=== PATIENT | male | born 1965 | race African-American/Black ===

== ENCOUNTER 2016-08-01 11:48 | Emergency (ER) | payer OTHER ==
[~2016-08-01] VITALS: Ht 167.6 cm; Wt 77.1 kg
[~2016-08-01 11:48] MED LIST: FLONASE ALLERG9.9 ML NS; IBUPROFEN600 MG ORAL; NORCO 5-325 TA1 EACH ORAL; RANITIDINE HCL150 MG ORAL; ROBITUSSIN COU118 M4 PO; no home meds
[2016-08-01 11:59] VITALS: BP 125/77
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
[2016-08-01] MEDS ORDERED: ACETAMINOPHEN-1 EAC1 ORAL (12:41)
[2016-08-01] MEDS ORDERED: ROBAXIN-750750 MG PO (12:41)
[2016-08-01] MEDS ORDERED: IBUPROFEN600 MG ORAL (12:41)
[2016-08-01 13:26] VITALS: BP 130/80
--- NOTE | 2016-08-04 08:48 | Diagnostic Imaging Report ---
Indications: , Back pain. Technique: 3 views of the thoracic spine Findings: Comparison: None The T12 vertebral body demonstrates mild height loss with anterior wedging with superior endplate. This results in mild kyphotic angulation. No underlying lytic destructive process or intrapedicle distance widening. Remaining thoracic vertebrae are normal in height and configuration. Vertebral alignment is intact. . Slight S-shaped scoliosis is present. No other chronic changes are demonstrated. IMPRESSION: Mild anterior wedging of T12 vertebral body may be developmental or represent mild compression fracture, acuity indeterminate. If clinically indicated, consider MRI for further evaluation. Mild scoliosis.
== END 2016-08-01 13:28 | disposition home or self-care (01) ==
LOC: EMR 12:15
DX: S39.92XA Unspecified injury of lower back, initial encounter (principal); S30.0XXA Contusion of lower back and pelvis, initial encounter; W50.0XXA Accidental hit or strike by another person, initial encounter; Y93.9 Activity, unspecified; Y92.9 Unspecified place or not applicable; Z88.0 Allergy status to penicillin; Z88.8 Allergy status to other drugs, medicaments and biological substances; K21.9 Gastro-esophageal reflux disease without esophagitis
CPT/HCPCS: 72070; 99282

== ENCOUNTER 2016-08-19 22:40 | Emergency (ER) | payer OTHER ==
[~2016-08-19 22:40] MED LIST changes: +ACETAMINOPHEN-1 EAC1 ORAL; +ROBAXIN-750750 MG PO
--- NOTE | 2016-08-19 22:54 | Emergency Room Report ---
History of Present Illness General Chief Complaint: To Be Triaged Present Illness HPI Patient presents with chief complaint of back pain. Patient decided not to check in the left because he did want to be billed. I did not get to see this patient. Allergies: Coded Allergies: ERYTHROMYCIN BASE (Verified Allergy, Severe, Itching, 12/28/12) feels sick PENICILLINS (Verified Allergy, Severe, Itching, 12/28/12) Nursing Documentation-PMH Hx Gastrointestinal Problems: Yes - GERD,Hx of Hemorrhoids Medical Decision Making Disposition: LEFT W/OUT BEING SEEN KEYONA BARRIOS M.D. August 19, 2016 22:54
== END 2016-08-19 22:46 | disposition left against medical advice (07) ==
LOC: EMR 22:46
DX: Z53.21 Procedure and treatment not carried out due to patient leaving prior to being seen by health care provider (principal); Z88.1 Allergy status to other antibiotic agents; Z88.0 Allergy status to penicillin; K21.9 Gastro-esophageal reflux disease without esophagitis

== ENCOUNTER 2016-08-25 13:57 | Emergency (ER) | payer OTHER ==
[2016-08-25] MEDS ORDERED: ROBAXIN-750750 MG PO (17:58)
[2016-08-25] MEDS ORDERED: IBUPROFEN600 MG ORAL (17:58)
--- NOTE | 2016-08-25 18:21 | Emergency Room Report ---
History of Present Illness General Chief Complaint: To Be Triaged Present Illness HPI The pt was called several times in the waiting area and was not to be found. LWBS Allergies: Coded Allergies: ERYTHROMYCIN BASE (Verified Allergy, Severe, Itching, 12/28/12) feels sick PENICILLINS (Verified Allergy, Severe, Itching, 12/28/12) Nursing Documentation-PMH Hx Gastrointestinal Problems: Yes - GERD,Hx of Hemorrhoids Medical Decision Making PA Attestation Dr. james is my supervising physician. Patient management was discussed with my supervising physician ER Course The pt was called several times in the waiting area and was not to be found. LWBS Referrals: [facility],REFERRING (PCP) SERA MILNER Aug 25, 2016 18:21
== END 2016-08-25 14:36 | disposition left against medical advice (07) ==
LOC: EMR 14:20
DX: Z53.21 Procedure and treatment not carried out due to patient leaving prior to being seen by health care provider (principal); Z88.0 Allergy status to penicillin; Z88.1 Allergy status to other antibiotic agents; K21.9 Gastro-esophageal reflux disease without esophagitis
CPT/HCPCS: 99284

== ENCOUNTER 2016-08-25 16:31 | Emergency (ER) | payer OTHER ==
[~2016-08-25] VITALS: Ht 170.2 cm; Wt 77.1 kg
[2016-08-25] MEDS ORDERED: ROBAXIN-750750 MG PO (17:58)
[2016-08-25] MEDS ORDERED: IBUPROFEN600 MG ORAL (17:58)
[2016-08-25 18:04] VITALS: BP 143/93
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
--- NOTE | 2016-08-26 09:43 | Diagnostic Imaging Report ---
Indication: Back pain Technique: Continuous helical transaxial imaging of the thoracic spine was obtained from the lung bases to the pubic symphysis. No IV contrast was administered. Coronal 2-D reformats were also obtained. Study obtained in a Siemens sensation [address] Total Dose length Product (DLP): [address] Dose Index Volume (CTDIvol): 27 mGy Comparison: None Findings: There is no acute fracture or malalignment identified. The central bony canal and foramina appear unremarkable. There are no abnormal fluid collections or paravertebral/paraspinous hematoma identified. Impression: Negative CT of the thoracic spine The CT scanner at [facility] is accredited by the [employer] and the scans are performed using dose optimization techniques as appropriate to a performed exam including Automatic Exposure control.
--- NOTE | 2016-08-26 09:48 | Diagnostic Imaging Report ---
Indication: Neck pain. Technique: Continuous helical imaging of the cervical spine was obtained transaxially from the skull base to the upper thoracic spine. 2-D coronal and sagittal reformatted images were obtained. Total Dose length Product (DLP): [address] Dose Index Volume (CTDIvol): 20 mGy Comparison: None Findings: There is no evidence of an acute fracture or malalignment. Atlantoaxial alignment appears normal. Height and configuration of the vertebral bodies and intervertebral discs are within normal limits. Uncovertebral joints and facets are unremarkable. There is no soft tissue swelling. Impression: Negative cervical spine CT The CT scanner at [facility] [place] is accredited by the [employer] and the scans are performed using dose optimization techniques as appropriate to a performed exam including Automatic Exposure control.
== END 2016-08-25 18:04 | disposition home or self-care (01) ==
LOC: EMR 16:56
DX: M54.2 Cervicalgia (principal); M54.9 Dorsalgia, unspecified; M25.512 Pain in left shoulder; K21.9 Gastro-esophageal reflux disease without esophagitis; Z88.0 Allergy status to penicillin; Z88.8 Allergy status to other drugs, medicaments and biological substances
CPT/HCPCS: 72125; 72128; 99284

== ENCOUNTER 2016-09-03 10:16 | Emergency (ER) | payer OTHER ==
[~2016-09-03] VITALS: Ht 170.2 cm; Wt 77.1 kg
[2016-09-03 10:38] VITALS: BP 112/79
[2016-09-03] MEDS ORDERED: Ranitidine 50mg/2ml Inj IV ONE (10:45)
[2016-09-03 11:09] LABS: BASOPHILS % (AUTO) 0.7 % (0.0-2.0); EOSINOPHILS % (AUTO) 2.3 % (0.0-3.0); LYMPHOCYTES % (AUTO) 4.4 % (20.0-45.0); MEAN CORPUSCULAR HEMOGLOBIN 29.5 PG (27.0-31.0); MEAN CORPUSCULAR HGB CONC 32.9 G/DL (32.0-36.0); MEAN CORPUSCULAR VOLUME 90 FL (80-99); MEAN PLATELET VOLUME 8.5 FL (6.5-10.1); MONOCYTES % (AUTO) 8.6 % (1.0-10.0); PLATELET COUNT 221 K/UL (150-450); RED BLOOD COUNT 5.86 M/UL (4.70-6.10); RED CELL DISTRIBUTION WIDTH 11.6 % (11.6-14.8); WHITE BLOOD COUNT 8.7 K/UL (4.8-10.8)
[2016-09-03 11:12] LABS: ALANINE AMINOTRANSFERASE 33 U/L (3-41); ALBUMIN/GLOBULIN RATIO 1.4 (1.0-2.7); ANION GAP 17 (5-15); ASPARTATE AMINO TRANSFERASE 16 U/L (5-40); CARBON DIOXIDE 22 mEQ/L (20-30); CHLORIDE 98 mEQ/L (98-107); CREATININE 1.5 mg/dL (0.7-1.2); GLOMERULAR FILTRATION RATE > 60 mL/min (>60); HEMOLYSIS 8; LIPASE 38 U/L (< 60); POTASSIUM 3.7 mEQ/L (3.4-4.9); SODIUM 137 mEQ/L (135-145); TOTAL PROTEIN 7.2 g/dL (6.6-8.7); TROPONIN I < 0.30 ng/mL (<=0.30)
[2016-09-03 11:25] LABS: BILIRUBIN,DIRECT 0.2 mg/dL (0.1-0.3)
[2016-09-03 11:48] VITALS: BP 119/78
[2016-09-03] MEDS ORDERED: ZOFRAN ODT4 MG ORAL (11:57)
--- NOTE | 2016-09-04 15:40 | Emergency Room Report ---
History of Present Illness General Chief Complaint: Nausea, Vomiting, and Diarrhea Source: Patient Present Illness HPI 50-year-old male presents to ED complaining of abdominal pain with vomiting and diarrhea. States symptoms started last night after eating dinner. Notes cramping abdominal pain, 5/10, nonradiating. Multiple episodes of vomiting and diarrhea. Denies fevers or chills. Denies recent antibiotic use. Denies recent travel. No other aggravating or relieving factors. Denies any other associated symptoms Allergies: Coded Allergies: ERYTHROMYCIN BASE (Verified Allergy, Severe, Itching, 12/28/12) feels sick PENICILLINS (Verified Allergy, Severe, Itching, 12/28/12) Patient History Past Medical History: GERD Past Surgical History: none Pertinent Family History: none Social History: Denies: alcohol use, drug use, smoking Immunizations: UTD Reviewed Nursing Documentation: PMH: Agreed, PSxH: Agreed Nursing Documentation-PM Past Medical History: No History, Except For Hx Gastrointestinal Problems: Yes - GERD,Hx of Hemorrhoids Review of Systems All Other Systems: negative except mentioned in HPI Physical Exam Vital Signs Date Time Temp Pulse Resp B/P Pulse Ox O2 Delivery O2 Flow Rate FiO2 09/03/16 10:25 98.1 94 18 112/79 98 Room Air Sp02 EP Interpretation: reviewed, normal General Appearance: no apparent distress, alert, GCS 15, non-toxic Head: normocephalic, atraumatic Eyes: bilateral eye PERRL, bilateral eye normal inspection ENT: hearing grossly normal, normal pharynx, no angioedema, normal voice Neck: full range of motion, supple/symm/no masses Respiratory: chest non-tender, lungs clear, normal breath sounds, speaking full sentences Cardiovascular #1: regular rate, rhythm, no edema Cardiovascular #2: 2+ carotid (R), 2+ carotid (L), 2+ radial (R), 2+ radial (L) , 2+ dorsalis pedis (R), 2+ dorsalis pedis (L) Gastrointestinal: normal bowel sounds, non tender, soft, non-distended, no guarding, no rebound Rectal: deferred Genitourinary: normal inspection, no CVA tenderness Musculoskeletal: back normal, gait/station normal, normal range of motion, non- tender Neurologic: alert, oriented x3, responsive, motor strength/tone normal, sensory intact, speech normal Psychiatric: judgement/insight normal, memory normal, mood/affect normal, no suicidal/homicidal ideation Reflexes: 3+ bicep (R), 3+ bicep (L), 3+ tricep (R), 3+ tricep (L), 3+ knee (R) , 3+ knee (L) Skin: normal color, no rash, warm/dry, well hydrated Lymphatic: no adenopathy Medical Decision Making Diagnostic Impression: Primary Impression: Gastroenteritis ER Course Hospital Course 50-year-old M presents to ED with cramping abdominal pain with vomiting, diarrhea differential diagnosis: gastritis, SBO, cholecystits, gastroenteritis Clinical course Patient placed on stretcher. On cardiac catheterization technician. After initial history and physical I ordered labs, IV fluids, Zofran and Zantac Labs - no leukocytosis, Cr 1.5, LFTs normal, UA unremarkable Upon reassessment, patient states pain has improved. findings consistent with gastroenteritis I feel this is a highly complex case requiring extensive working including EKG/ Rhythm strip, Xray/CT/US, Blood/urine lab work, repeat exams while in ED, and administration of strong opiates/narcotics for pain control, admission to hospital or close patient follow up. Diagnosis - gastroenteritis Stable and discharged to home with prescriptions for zofran. Followup with PMD. Return to ED if symptoms recur or worsen Labs Test 09/03/16 10:45 White Blood Count 8.7 K/UL (4.8-10.8) Red Blood Count 5.86 M/UL (4.70-6.10) Hemoglobin 17.2 G/DL (14.2-18.0) Hematocrit 52.5 % (42.0-52.0) Mean Corpuscular Volume 90 FL (80-99) Mean Corpuscular Hemoglobin 29.5 PG (27.0-31.0) Mean Corpuscular Hemoglobin Concent 32.9 G/DL (32.0-36.0) Red Cell Distribution Width 11.6 % (11.6-14.8) Platelet Count 221 K/UL (150-450) Mean Platelet Volume 8.5 FL (6.5-10.1) Neutrophils (%) (Auto) 84.0 % (45.0-75.0) Lymphocytes (%) (Auto) 4.4 % (20.0-45.0) Monocytes (%) (Auto) 8.6 % (1.0-10.0) Eosinophils (%) (Auto) 2.3 % (0.0-3.0) Basophils (%) (Auto) 0.7 % (0.0-2.0) Sodium Level 137 mEQ/L (135-145) Potassium Level 3.7 mEQ/L (3.4-4.9) Chloride Level 98 mEQ/L (98-107) Carbon Dioxide Level 22 mEQ/L (20-30) Anion Gap 17 (5-15) Blood Urea Nitrogen 21 mg/dL (7-23) Creatinine 1.5 mg/dL (0.7-1.2) Estimat Glomerular Filtration Rate > 60 mL/min (>60) Glucose Level 103 mg/dL (74-106) Calcium Level 9.0 mg/dL (8.6-10.2) Total Bilirubin 1.1 mg/dL (0.0-1.2) Direct Bilirubin 0.2 mg/dL (0.1-0.3) Aspartate Amino Transf (AST/SGOT) 16 U/L (5-40) Alanine Aminotransferase (ALT/SGPT) 33 U/L (3-41) Alkaline Phosphatase 78 U/L (40-129) Troponin I < 0.30 ng/mL (<=0.30) Total Protein 7.2 g/dL (6.6-8.7) Albumin 4.3 g/dL (3.5-5.2) Globulin 2.9 g/dL Albumin/Globulin Ratio 1.4 (1.0-2.7) Lipase 38 U/L (< 60) Last Vital Signs Date Time Temp Pulse Resp B/P Pulse Ox O2 Delivery O2 Flow Rate FiO2 09/03/16 11:48 98.1 67 18 119/78 98 Room Air Status: improved Disposition: HOME, SELF-CARE Condition: Stable Scripts Ondansetron Odt* (ZOFRAN ODT*) 4 Mg Tab.rapdis 4 MG ORAL Q6H Y for Nausea & Vomiting, #30 TAB Prov: JADE JAMES M.D. 09/03/16 Patient Instructions: Viral Gastroenteritis, Adult, [id number] JADE JAMES M.D. Sep 04, 2016 15:40
== END 2016-09-03 12:13 | disposition home or self-care (01) ==
LOC: EMR 10:41
DX: K52.9 Noninfective gastroenteritis and colitis, unspecified (principal); K21.9 Gastro-esophageal reflux disease without esophagitis; Z88.0 Allergy status to penicillin; Z88.8 Allergy status to other drugs, medicaments and biological substances
CPT/HCPCS: 36415; 80053; 82248; 83690; 84484; 85025; 96360; 96374; 96375; 99284; J2405; J2780

== ENCOUNTER 2016-10-11 12:33 | Emergency (ER) | payer OTHER ==
[~2016-10-11] VITALS: Ht 170.2 cm; Wt 77.1 kg
[~2016-10-11 12:33] MED LIST changes: +ZOFRAN ODT4 MG ORAL
[2016-10-11] MEDS ORDERED: NKM (12:42)
[2016-10-11 12:45] VITALS: BP 125/78
--- NOTE | 2016-10-11 12:58 | Emergency Room Report ---
History of Present Illness General Chief Complaint: General Complaint Source: Patient Present Illness HPI 50 YO Male presents to the ED c/o pressure to the right maxillary sinus with nasal congestion and sneezing with rhinorrhea x 3 days. pt. had acute onset of facial numbness to the right side of the nose, and upper right lip after blowing his nose, which resolved after about 20 mins. denies fevers, chills or recent trauma. pt. denies BLOCK, N/V, nosebleeds, or hx of immune compromise, denies rashes. pt. states he heard "high pitched noises and felt the pressure moving throughout the sinus just prior to the facial numbness beginning to resolve. pt denies numbness at this time. denies weakness. pt. states he has been using Nasonex intermittently at home, and has a hx of seasonal allergies. denies purulent drainage, or eye symptoms such as pain with movement, blurry vision, or loss of vision. Denies CP, Palpitations, LOC, AMS, dizziness, Changes in Vision, Sensation, paresthesias, or a sudden severe headache. Allergies: Coded Allergies: ERYTHROMYCIN BASE (Verified Allergy, Severe, Itching, 12/28/12) feels sick PENICILLINS (Verified Allergy, Severe, Itching, 12/28/12) Patient History Past Medical History: see triage record Past Surgical History: none Pertinent Family History: none Immunizations: UTD Reviewed Nursing Documentation: PMH: Agreed, PSxH: Agreed Nursing Documentation-[facility] Past Medical History: No Stated History Hx Gastrointestinal Problems: Yes - GERD,Hx of Hemorrhoids Review of Systems All Other Systems: negative except mentioned in HPI Physical Exam Vital Signs Date Time Temp Pulse Resp B/P Pulse Ox O2 Delivery O2 Flow Rate FiO2 10/11/16 12:38 97.9 84 16 125/78 94 Room Air Sp02 EP Interpretation: reviewed, normal General Appearance: no apparent distress, alert, GCS 15, non-toxic Head: normocephalic, atraumatic Eyes: bilateral eye EOMI - not painful, bilateral eye PERRL, bilateral eye normal inspection ENT: hearing grossly normal, normal pharynx, no angioedema, normal voice, TMs + canals normal, uvula midline, moist mucus membranes, nasal congestion, other - no purulent drainage seen, turbinates are boggy and swollen bilaterally, no tenderness to palpation or percussion of the sinuses. Neck: full range of motion, supple/symm/no masses Respiratory: lungs clear, normal breath sounds, speaking full sentences Cardiovascular #1: regular rate, rhythm, no edema Musculoskeletal: back normal, gait/station normal, normal range of motion Neurologic: alert, oriented x3, responsive, motor strength/tone normal, sensory intact, speech normal Psychiatric: judgement/insight normal, memory normal, mood/affect normal Skin: normal color, no rash, warm/dry, well hydrated Lymphatic: no adenopathy Medical Decision Making PA Attestation Dr. Dixon is my supervising Physician whom patient management has been discussed with. Diagnostic Impression: Primary Impression: Nasal congestion with rhinorrhea Additional Impression: Rhinitis Qualified Codes: J30.2 - Other seasonal allergic rhinitis ER Course Pt. presents to the ED c/o pressure to the right maxillary sinus with nasal congestion and sneezing with rhinorrhea x 3 days. pt. had acute onset of facial numbness to the right side of the nose, and upper right lip after blowing his nose, which resolved after about 20 mins. denies fevers, chills or recent trauma. Ddx considered but are not limited to URI, orbital cellulitis, cva, sinusitis, rhinitis, orbital/facial fracture just to name a few. Vital signs: Pt. is afebrile, the remaining VS are WNL H&PE are most consistent with nasal congestion with rhinitis, no evidence to suggest involvement of the eye. no focal neurological deficits, no rashes, ears and tm's are WNL. ORDERS: none required at this time, the diagnosis is clinical ED INTERVENTIONS: None required at this time. --PT. EDUCATION: discussed not to use decongestants longer than 3 days. recommend regular use of nasonex spray, and follow up with PMD. DISCHARGE: At this time pt. is stable for d/c to home. Will provide printed patient care instructions, and any necessary prescriptions. Care plan and follow up instructions have been discussed with the patient prior to discharge. Last Vital Signs Date Time Temp Pulse Resp B/P Pulse Ox O2 Delivery O2 Flow Rate FiO2 10/11/16 12:45 97.9 16 125/78 94 Room Air 10/11/16 12:38 84 Disposition: HOME, SELF-CARE Condition: Stable Scripts Pseudoephedrine Hcl* (NEXAFED*) 30 Mg Tablet 30 MG ORAL Q6H Y for congestion, #12 TAB Prov: Yue Butt 10/11/16 Cetirizine Hcl* (ZYRTEC*) 10 Mg Tablet 10 MG ORAL DAILY, #30 TAB 0 Refills Prov: Yue Butt 10/11/16 Patient Instructions: Allergic Rhinitis Additional Instructions: Take medications as directed. Follow up with a Primary Care Provider in 3-5 days, even if your symptoms have resolved. --Please review list of primary care clinics, if you do not already have a primary care provider Return sooner to ED if new symptoms occur, or current symptoms become worse. - Please note that this Emergency Department Report was dictated using [employer] technology software, occasionally this can lead to erroneous entry secondary to interpretation by the dictation equipment. Yue Butt Oct 11, 2016 12:58
[2016-10-11] MEDS ORDERED: ZYRTEC10 MG ORAL (12:59)
[2016-10-11] MEDS ORDERED: NEXAFED30 MG ORAL (12:59)
[2016-10-11 13:05] VITALS: BP 125/78
== END 2016-10-11 13:06 | disposition home or self-care (01) ==
LOC: EMR 12:52
DX: R09.81 Nasal congestion (principal); J34.89 Other specified disorders of nose and nasal sinuses; J31.0 Chronic rhinitis; Z88.0 Allergy status to penicillin
CPT/HCPCS: 99284

== ENCOUNTER 2017-08-07 16:05 | Emergency (ER) | payer SELFPAY ==
[~2017-08-07] VITALS: Ht 170.2 cm; Wt 72.6 kg
--- NOTE | 2017-08-07 16:02 | Emergency Room Report ---
History of Present Illness General Source: Patient Present Illness HPI Patient is a 51-year-old male brought in by EMS after increased chest discomfort. Patient had sudden onset of symptoms. He reportedly was having crushing chest discomfort at the time of onset. The patient was noted to be in severe ventricular tachycardia by EMS and was given IV adenosine with conversion after 6mg, then 12 mg IV. Allergies: Coded Allergies: ERYTHROMYCIN BASE (Verified Allergy, Severe, Itching, 12/28/12) feels sick PENICILLINS (Verified Allergy, Severe, Itching, 12/28/12) Patient History Past Medical History: see triage record Reviewed Nursing Documentation: PMH: Agreed; PSxH: Agreed Review of Systems All Other Systems: negative except mentioned in HPI Physical Exam Sp02 EP Interpretation: reviewed, normal General Appearance: normal inspection, well appearing, no apparent distress, alert, GCS 15, non-toxic Head: atraumatic ENT: normal ENT inspection, hearing grossly normal, normal voice Neck: normal inspection, full range of motion, supple, no bony tend Respiratory: normal inspection, lungs clear, normal breath sounds, no respiratory distress, no retraction, no wheezing Cardiovascular #1: regular rate, rhythm, no edema Gastrointestinal: normal inspection, normal bowel sounds, non tender, soft, no guarding, hernia - umbilical Musculoskeletal: normal inspection, back normal, normal range of motion Neurologic: normal inspection, alert, oriented x3, responsive, telesales manager III-XII nml as tested, motor strength/tone normal, speech normal Psychiatric: normal inspection, judgement/insight normal, mood/affect normal Skin: normal inspection, normal color, no rash Medical Decision Making Diagnostic Impression: Primary Impression: Supraventricular tachycardia ER Course patient presented for chest pain.Differential diagnosis included but was not limited to acute coronary syndrome, arrhythmia,pulmonary embolism, pneumonia, aortic dissection, shingles, pneumothorax, aortic dissection, esophageal rupture , pericarditis. Because of complexity of patient's case laboratory testing and imaging studies were ordered.The patient was noted to have initial rhythm with EMS of supraventricular tachycardia. The patient had no recurrence of chest pain after the conversion of SVT is pain-free while in the emergency department. The patient is advised follow-up with cardiology as an outpatient for further evaluationThe patient is advised to follow up with primary care doctor in 1-2 days. Patient is advised to return if any worsening condition or if any changes in status that are concerning. This report is dictated with Dragon compensation business partner software which may occasionally lead to discrepancies related to use of this software. Labs Test 08/07/17 16:11 White Blood Count 9.0 K/UL (4.8-10.8) Red Blood Count 5.39 M/UL (4.70-6.10) Hemoglobin 16.4 G/DL (14.2-18.0) Hematocrit 47.9 % (42.0-52.0) Mean Corpuscular Volume 89 FL (80-99) Mean Corpuscular Hemoglobin 30.4 PG (27.0-31.0) Mean Corpuscular Hemoglobin Concent 34.2 G/DL (32.0-36.0) Red Cell Distribution Width 11.3 % (11.6-14.8) Platelet Count 231 K/UL (150-450) Mean Platelet Volume 8.6 FL (6.5-10.1) Neutrophils (%) (Auto) 68.0 % (45.0-75.0) Lymphocytes (%) (Auto) 19.0 % (20.0-45.0) Monocytes (%) (Auto) 8.5 % (1.0-10.0) Eosinophils (%) (Auto) 3.0 % (0.0-3.0) Basophils (%) (Auto) 1.5 % (0.0-2.0) Sodium Level 137 MMOL/L (136-145) Potassium Level 4.2 MMOL/L (3.5-5.1) Chloride Level 106 MMOL/L (98-107) Carbon Dioxide Level 21 MMOL/L (21-32) Anion Gap 10 mmol/L (5-15) Blood Urea Nitrogen 13 mg/dL (7-18) Creatinine 1.3 MG/DL (0.55-1.30) Estimat Glomerular Filtration Rate > 60 mL/min (>60) Glucose Level 158 MG/DL (74-106) Calcium Level 8.4 MG/DL (8.5-10.1) Total Bilirubin 0.5 MG/DL (0.2-1.0) Aspartate Amino Transf (AST/SGOT) 24 U/L (15-37) Alanine Aminotransferase (ALT/SGPT) 63 U/L (12-78) Alkaline Phosphatase 90 U/L (46-116) Total Creatine Kinase 177 U/L (26-308) Creatine Kinase MB 1.3 NG/ML (0.0-3.6) Creatine Kinase MB Relative Index 0.7 Troponin I 0.000 ng/mL (0.000-0.056) Pro-B-Type Natriuretic Peptide 11 pg/mL (0-125) Total Protein 7.1 G/DL (6.4-8.2) Albumin 3.5 G/DL (3.4-5.0) Globulin 3.6 g/dL Albumin/Globulin Ratio 1.0 (1.0-2.7) Thyroid Stimulating Hormone (TSH) 1.575 uiU/mL (0.358-3.740) Urine Opiates Screen Negative (NEGATIVE) Urine Barbiturates Screen Negative (NEGATIVE) Phencyclidine (PCP) Screen Negative (NEGATIVE) Urine Amphetamines Screen Negative (NEGATIVE) Urine Benzodiazepines Screen Negative (NEGATIVE) Urine Cocaine Screen Negative (NEGATIVE) Urine Marijuana (THC) Screen Negative (NEGATIVE) EKG Diagnostic Results Rate: normal - 92 Rhythm: NSR ST Segments: no acute changes ASA given to the pt in ED: Yes Rhythm Strip Diag. Results EP Interpretation: yes Rhythm: NSR, no PVC's, no ectopy Status: improved Disposition: HOME, SELF-CARE Condition: Stable Nuno Corral MD August 07, 2017 16:02
[~2017-08-07 16:05] MED LIST changes: +NEXAFED30 MG ORAL; +NKM; +ZYRTEC10 MG ORAL
[2017-08-07] MEDS ORDERED: Aspirin Baby 81mg ORAL ONE (16:15)
[2017-08-07 16:29] LABS: BASOPHILS % (AUTO) 1.5 % (0.0-2.0); HEMATOCRIT 47.9 % (42.0-52.0); HEMOGLOBIN 16.4 G/DL (14.2-18.0); MEAN CORPUSCULAR VOLUME 89 FL (80-99); MONOCYTES % (AUTO) 8.5 % (1.0-10.0); PLATELET COUNT 231 K/UL (150-450); RED BLOOD COUNT 5.39 M/UL (4.70-6.10); RED CELL DISTRIBUTION WIDTH 11.3 % (11.6-14.8)
[2017-08-07 16:38] LABS: ANION GAP 10 mmol/L (5-15); BLOOD UREA NITROGEN 13 mg/dL (7-18); CALCIUM 8.4 MG/DL (8.5-10.1); CARBON DIOXIDE 21 MMOL/L (21-32); CHLORIDE 106 MMOL/L (98-107); CREATININE 1.3 MG/DL (0.55-1.30); POTASSIUM 4.2 MMOL/L (3.5-5.1); SODIUM 137 MMOL/L (136-145)
[2017-08-07 16:43] VITALS: BP 142/88
[2017-08-07 16:50] LABS: ALANINE AMINOTRANSFERASE 63 U/L (12-78); ALBUMIN 3.5 G/DL (3.4-5.0); ALKALINE PHOSPHATASE 90 U/L (46-116); ASPARTATE AMINO TRANSFERASE 24 U/L (15-37); BILIRUBIN,TOTAL 0.5 MG/DL (0.2-1.0); CKMB 1.3 NG/ML (0.0-3.6); CREATINE KINASE 177 U/L (26-308)
--- NOTE | 2017-08-07 16:56 | Diagnostic Imaging Report ---
Indication: Chest pain Technique: One view of the chest Comparison: none Findings: Lungs and pleural spaces are clear. Heart size is normal Impression: No acute process
[2017-08-07 18:15] VITALS: BP 142/88
--- NOTE | 2017-08-10 13:58 | Cardiology Report ---
APPROVED REPORT EKG Measurement Heart [id number] Normal sinus rhythm Normal ECG
== END 2017-08-07 18:15 | disposition home or self-care (01) ==
LOC: EDBD 16:05 → EDSEX 16:05 → EMR 16:30
DX: I47.1 Supraventricular tachycardia (principal); R07.89 Other chest pain; Z88.0 Allergy status to penicillin
CPT/HCPCS: 36415; 71045; 80053; 80307; 82550; 82553; 83880; 84443; 84484; 85025; 93005; 99283

== ENCOUNTER 2018-05-02 09:12 | Emergency (ER) | payer MEDICAID ==
[~2018-05-02] VITALS: Ht 167.6 cm; Wt 79.4 kg
[2018-05-02] MEDS ORDERED: BENADRYL25 M3 PO (09:21)
[2018-05-02] MEDS ORDERED: FLONASE ALLERG9.9 ML NS (09:21)
[2018-05-02 09:28] VITALS: BP 130/85
--- NOTE | 2018-05-02 09:30 | NUR ---
ED Nurse Note: Pt walked in to ER c/o painful cough 8/10 that pain in chest upon coughing. during assessment pt did not cough and no SOB noted. pt aao x4, calm, skin intact.
[2018-05-02] MEDS ORDERED: BREATHERITE SP1 EAC4 MC (09:49)
[2018-05-02] MEDS ORDERED: ALBUTEROL SULF8.5 GM INH (09:49)
[2018-05-02] MEDS ORDERED: PROMETHAZINE-C118 M1 ORAL (09:49)
[2018-05-02 09:53] VITALS: BP 130/85
--- NOTE | 2018-05-02 09:54 | NUR ---
ED Nurse Note: Pt cleared DC by Dr. Lorenzana. Pt is A/Ox4, VSS, DC instruction and prescriptions given, pt verbalized understanding. ID wristband removed. All belongings given to pt. Pt ambulated out of ER with steady gait.
--- NOTE | 2018-05-02 10:17 | Emergency Room Report ---
History of Present Illness General Chief Complaint: Upper Respiratory Illness Source: Patient, Medical Record Present Illness HPI 52-year-old male presents ED for evaluation. Patient complaining of cough 2 days. States cough is dry. Denies fevers or chills. Sore throat or earache. States he notes soreness in his chest after repeated coughing episodes. Pain is dull, 8 out of 10, nonradiating. Denies shortness of breath. Denies pain at this time. Admits to smoking. Denies sick contacts or recent travel. No other aggravating relieving factors. Denies any other associated symptoms Allergies: Coded Allergies: ERYTHROMYCIN BASE (Verified Allergy, Severe, Itching, 12/28/12) feels sick PENICILLINS (Verified Allergy, Severe, Itching, 12/28/12) Patient History Past Medical History: GERD Past Surgical History: none Pertinent Family History: none Social History: Reports: smoking; Denies: alcohol use, drug use Immunizations: UTD Reviewed Nursing Documentation: PMH: Agreed; PSxH: Agreed Nursing Documentation-PMH Hx Gastrointestinal Problems: Yes - GERD,Hx of Hemorrhoids Review of Systems All Other Systems: negative except mentioned in HPI Physical Exam Vital Signs Date Time Temp Pulse Resp B/P (MAP) Pulse Ox O2 Delivery O2 Flow Rate FiO2 05/02/18 09:18 97.9 84 16 130/85 95 Room Air Sp02 EP Interpretation: reviewed, normal General Appearance: no apparent distress, alert, GCS 15, non-toxic Head: normocephalic Eyes: bilateral eye normal inspection, bilateral eye PERRL ENT: hearing grossly normal, normal pharynx, no angioedema, normal voice Neck: normal inspection, full range of motion, supple Respiratory: chest non-tender, lungs clear, normal breath sounds, speaking full sentences Cardiovascular #1: regular rate, rhythm, no edema Gastrointestinal: normal inspection Rectal: deferred Genitourinary: no CVA tenderness Musculoskeletal: normal inspection Neurologic: alert, oriented x3, responsive, motor strength/tone normal, sensory intact, speech normal Psychiatric: normal inspection Skin: normal inspection Lymphatic: normal inspection Medical Decision Making Diagnostic Impression: Primary Impression: Bronchitis ER Course Hospital Course 52-year-old male presents to ED complaining of cough x 2 days Differential diagnoses include: URI, pharyngitis, otitis media, asthma Clinical course Patient placed on stretcher. After initial history, physical exam reveals a middle aged male in no acute distress. Bilateral TM unremarkable. No pharyngeal erythema. No tonsillar exudates. No lymphadenopathy. lungs clear. abdomen soft. Clinical findings consistent with bronchitis. Discussed findings with patient. Course is viral and self-limited. We'll prescribe cough medication, inhaler Safe for discharge and close outpatient follow-up. States he has a PMD Diagnosis - bronchitis Stable and discharged home with Rx promethazine/codeine, albuterol, spacer. Instructed to followup with PMD. Return to ED if symptoms recur or worsen Last Vital Signs Date Time Temp Pulse Resp B/P (MAP) Pulse Ox O2 Delivery O2 Flow Rate FiO2 05/02/18 09:53 97.9 82 16 130/85 95 Room Air Status: improved Disposition: HOME, SELF-CARE Condition: Stable Scripts Inhaler, Assist Devices (Breatherite Spacer-Adult Mask) 1 Each Spacer EACH , #1 Prov: Louis Lorenzana MD 05/02/18 Codeine/Promethazine Hcl* (PROMETHAZINE-CODEINE SYRUP*) 118 Ml Syrup 5 ML ORAL Q6H PRN for For Cough, #118 ML 0 Refills Prov: Louis Lorenzana MD 05/02/18 Albuterol Sulfate* (ALBUTEROL SULFATE MDI*) 8.5 Gm Hfa.aer.ad 2 PUFF INH Q6H, #1 EA 0 Refills Prov: Louis Lorenzana MD 05/02/18 Referrals: NON PHYSICIAN (PCP) Patient Instructions: Acute Bronchitis, [id number] Louis Lorenzana MD May 02, 2018 10:18
== END 2018-05-02 09:55 | disposition home or self-care (01) ==
LOC: EMR 09:48
DX: J40 Bronchitis, not specified as acute or chronic (principal); K21.9 Gastro-esophageal reflux disease without esophagitis; F17.200 Nicotine dependence, unspecified, uncomplicated; Z88.0 Allergy status to penicillin
CPT/HCPCS: 99282

== ENCOUNTER 2018-05-09 22:06 | Emergency (ER) | payer MEDICAID ==
[~2018-05-09] VITALS: Ht 167.6 cm; Wt 79.4 kg
[~2018-05-09 22:06] MED LIST changes: +ALBUTEROL SULF8.5 GM INH; +BENADRYL25 M3 PO; +BREATHERITE SP1 EAC4 MC; +PROMETHAZINE-C118 M1 ORAL
[2018-05-09 22:34] VITALS: BP 136/92
--- NOTE | 2018-05-09 22:34 | NUR ---
ED Nurse Note: Patient presents with complaints of neck and left ear pain 10/10.
--- NOTE | 2018-05-09 23:27 | NUR ---
ED Nurse Note: Patient resting comfortably.
[2018-05-10] MEDS ORDERED: IBUPROFEN600 MG ORAL (00:11)
[2018-05-10] MEDS ORDERED: CLINDAMYCIN HC300 MG ORAL (00:11)
[2018-05-10 00:19] VITALS: BP 136/92
--- NOTE | 2018-05-10 00:19 | NUR ---
ED Nurse Note: Patient cleared for discharge, patient is in stable condition, has no complaints of pain or discomfort. Patient is A&OX4, ambulatory with steady gait. ID band removed. Patient departed with all belongings. Patient verbalized understanding of discharge instructions.
--- NOTE | 2018-05-10 03:59 | Emergency Room Report ---
History of Present Illness General Chief Complaint: Pain Source: Patient Present Illness HPI Patient is a 52-year-old male presented after increased left earache. Patient reports having increased pain to the left side of his neck as well as pain to his left ear. Patient had recent upper respiratory illness. He reports having some nonproductive cough. Patient denies any vomiting or diarrhea Allergies: Coded Allergies: ERYTHROMYCIN BASE (Verified Allergy, Severe, Itching, 12/28/12) feels sick PENICILLINS (Verified Allergy, Severe, Itching, 12/28/12) Patient History Past Medical History: see triage record Reviewed Nursing Documentation: PMH: Agreed; PSxH: Agreed Nursing Documentation-PMH Hx Gastrointestinal Problems: Yes - GERD,Hx of Hemorrhoids Review of Systems All Other Systems: negative except mentioned in HPI Physical Exam Vital Signs Date Time Temp Pulse Resp B/P (MAP) Pulse Ox O2 Delivery O2 Flow Rate FiO2 05/09/18 22:18 98.2 85 13 136/92 99 Room Air General Appearance: well appearing, no apparent distress, alert, GCS 15 Head: normocephalic, atraumatic ENT: hearing grossly normal, normal voice, other - left ear TM bulging, erythema Neck: full range of motion, supple Respiratory: chest non-tender, no respiratory distress, speaking full sentences Cardiovascular #1: normal inspection Gastrointestinal: normal inspection Musculoskeletal: no calf tenderness Neurologic: normal gait Psychiatric: mood/affect normal Skin: no rash Medical Decision Making Diagnostic Impression: Primary Impression: Otitis media Additional Impression: Pain ER Course Patient presented for ear pain. Differential diagnosis included was not limited to otitis media, malignant otitis externa, foreign body, cellulitis, mastoiditis, carotid dissection, myocardial infarction among others. Patient has a benign exam and does not appear to require any further imaging or laboratory testing at this time. Appears to have a left otitis media. patient was given prescription for oral antibiotics. Patient was advised to follow-up with his primary care physician for recheck. Last Vital Signs Date Time Temp Pulse Resp B/P (MAP) Pulse Ox O2 Delivery O2 Flow Rate FiO2 05/10/18 00:19 98.2 82 15 136/92 99 Room Air Status: improved Disposition: HOME, SELF-CARE Condition: Improved Scripts Ibuprofen* (MOTRIN*) 600 Mg Tablet 600 MG ORAL Q8H PRN for For Pain, #30 TAB 0 Refills Prov: Nuno Corral MD 05/10/18 Clindamycin Hcl (CLINDAMYCIN HCL) 300 Mg Capsule 300 MG ORAL FOUR TIMES A DAY, #21 CAP Prov: Nuno Corral MD 05/10/18 Patient Instructions: Otitis Media, Adult Nuno Corral MD May 10, 2018 03:59
== END 2018-05-10 00:19 | disposition home or self-care (01) ==
LOC: EMR 22:35
DX: H66.92 Otitis media, unspecified, left ear (principal); Z88.1 Allergy status to other antibiotic agents; Z88.0 Allergy status to penicillin; K21.9 Gastro-esophageal reflux disease without esophagitis
CPT/HCPCS: 99282

== ENCOUNTER 2018-09-03 23:42 | Emergency (ER) | payer MEDICAID ==
[~2018-09-03] VITALS: Ht 170.2 cm; Wt 79.4 kg
[~2018-09-03 23:42] MED LIST changes: +CLINDAMYCIN HC300 MG ORAL
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
[2018-09-03 23:58] VITALS: BP 151/82
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
--- NOTE | 2018-09-04 00:40 | NUR ---
ED Nurse Note: Pt cleared by health care Provider for discharge. DC instructions/prescription was given and explained to pt but pt refused to sign nor to take paperwork beacuse he did not agree with Dr's decision. All medical deviecs such as ID band removed. Pt is AAO x4, ambulatory and left with all personal belongings.
== END 2018-09-04 00:38 | disposition home or self-care (01) ==
LOC: EMR 09-04 00:15
DX: R42 Dizziness and giddiness (principal); F41.9 Anxiety disorder, unspecified; Z88.0 Allergy status to penicillin; Z88.1 Allergy status to other antibiotic agents
CPT/HCPCS: 99281

== ENCOUNTER 2018-12-14 06:30 | Emergency (ER) | payer MEDICAID ==
[~2018-12-14] VITALS: Ht 167.6 cm; Wt 80.7 kg
[2018-12-14 06:42] VITALS: BP 135/97
--- NOTE | 2018-12-14 06:44 | NUR ---
ER Nurse Note: Pt walked in c/o LT eye irritation, pain since 299. LT eye swollen, states clear liquid drainage, blurry vision. Pt hx of cataract. Denies trauma, bug bites, denies objects in eye. Visual acuity completed.
[2018-12-14] MEDS ORDERED: CLINDAMYCIN HC300 MG ORAL (06:56)
[2018-12-14] MEDS ORDERED: OCUFLOX5 ML LEFT EYE (06:56)
[2018-12-14 07:06] VITALS: BP 135/97
--- NOTE | 2018-12-14 07:06 | NUR ---
ER Nurse Note: Pt seen, treated, medically cleared for discharge by ERMD. Discharge instuctions and prescriptions given with repeat verbalization by pt. Emphasized to follow up with primay care provider. All orders completed per ERMD orders. Pt a&ox4, VSS, no signs of distress. ID band removed. All questions answered per pt's questions. Pt left with all belongings, left with own transportation.
--- NOTE | 2018-12-14 07:53 | Emergency Room Report ---
History of Present Illness General Chief Complaint: Eye Problems Source: Patient Present Illness HPI 53-year-old male presents ED for evaluation. Complaining of left eye pain. Started 2 days ago. Notes swelling to the left eyelid. Also noting watery discharge and redness to the left eye. Pain is dull, 6 out of 10, nonradiating. Denies change in visual acuity. Denies fevers or chills. Denies neck stiffness. No other aggravating relieving factors. Denies any other associated symptoms Allergies: Coded Allergies: ERYTHROMYCIN BASE (Verified Allergy, Severe, Itching, 12/28/12) feels sick PENICILLINS (Verified Allergy, Severe, Itching, 12/28/12) Patient History Past Medical History: other - cataracts Past Surgical History: none Pertinent Family History: none Social History: Denies: smoking, alcohol use, drug use Immunizations: UTD Reviewed Nursing Documentation: PMH: Agreed; PSxH: Agreed Nursing Documentation-PMH Hx Cardiac Problems: No Hx Hypertension: No Hx Pacemaker: No Hx Asthma: No Hx COPD: No Hx Diabetes: No Hx Cancer: No Hx Gastrointestinal Problems: No Hx Dialysis: No Hx Neurological Problems: No Hx Cerebrovascular Accident: No Hx Seizures: No Review of Systems All Other Systems: negative except mentioned in HPI Physical Exam Vital Signs Date Time Temp Pulse Resp B/P (MAP) Pulse Ox O2 Delivery O2 Flow Rate FiO2 12/14/18 06:32 97.5 65 16 135/97 (110) 95 Room Air Sp02 EP Interpretation: reviewed, normal General Appearance: no apparent distress, alert, GCS 15, non-toxic Head: normocephalic, atraumatic Eyes: right eye normal inspection; left eye lid inflammation, left eye Scleral Injection; bilateral eye PERRL ENT: hearing grossly normal, normal pharynx, no angioedema, normal voice Neck: full range of motion, supple, no meningismus, supple/symm/no masses Respiratory: normal inspection Cardiovascular #1: normal inspection Gastrointestinal: normal inspection Rectal: deferred Genitourinary: no CVA tenderness Musculoskeletal: normal inspection Neurologic: alert, oriented x3, responsive, motor strength/tone normal, sensory intact, speech normal Psychiatric: normal inspection Skin: no rash Lymphatic: normal inspection Medical Decision Making Diagnostic Impression: Primary Impression: Stye Qualified Codes: H00.014 - Hordeolum externum left upper eyelid Additional Impression: Conjunctivitis Qualified Codes: H10.32 - Unspecified acute conjunctivitis, left eye ER Course Hospital Course 53 yo M presents with L eyelid pain/swelling, L eye discharge Differential diagnoses include: conjunctivitis, traumatic iritis, foreign body, corneal abrasion Clinical course Patient placed on stretcher. After initial history, physical exam revealed a middle-aged male no acute distress. There is swelling and erythema to the left upper eyelid. No fluctuance. Also scleral injection of the left eye. Watery discharge noted. I discussed findings with patient. We will treat for stye as well as conjunctivitis. I will provide optho referral. Safe for discharge with close outpatient follow-up Diagnosis - stye, conjunctivitis Stable and discharged to home with prescription for Ocuflox, clindamycin. Followup with PMD/Optho. Return to ED if symptoms recur or worsen Last Vital Signs Date Time Temp Pulse Resp B/P (MAP) Pulse Ox O2 Delivery O2 Flow Rate FiO2 12/14/18 07:06 97.5 65 16 135/97 95 Room Air Status: improved Disposition: HOME, SELF-CARE Condition: Stable Scripts Ofloxacin (OCUFLOX) 5 Ml Drops 1 DROP LEFT EYE QID for 7 Days, ML Prov: Louis Lorenzana MD 12/14/18 Clindamycin Hcl (CLINDAMYCIN HCL) 300 Mg Capsule 300 MG ORAL THREE TIMES A DAY, #21 CAP Prov: Louis Lorenzana MD 12/14/18 Referrals: Nehemias Cottrell MD, Maziar M.D. MD NON PHYSICIAN (PCP) Patient Instructions: Stye, Bacterial Conjunctivitis, [id number] Louis Lorenzana MD Dec 14, 2018 07:53
== END 2018-12-14 07:06 | disposition home or self-care (01) ==
LOC: EMR 06:55
DX: H00.014 Hordeolum externum left upper eyelid (principal); H10.32 Unspecified acute conjunctivitis, left eye; Z88.0 Allergy status to penicillin; Z88.1 Allergy status to other antibiotic agents; H26.9 Unspecified cataract
CPT/HCPCS: 99282

== ENCOUNTER 2019-04-26 18:11 | Emergency (ER) | payer MEDICAID ==
[~2019-04-26] VITALS: Ht 167.6 cm; Wt 74.8 kg
[~2019-04-26 18:11] MED LIST changes: +OCUFLOX5 ML LEFT EYE
--- NOTE | 2019-04-26 18:58 | Emergency Room Report ---
History of Present Illness General Chief Complaint: Pain Source: Patient Present Illness HPI 53-year-old male with no significant past medical history here complaining of 2 weeks of right elbow pain. Patient denies any fall or injury. Reports that he is right-handed and often lifts heavy objects with right-sided arm. No bony tenderness noted. Denies any pain radiation rating it 5 out of 10 today. Has not taken medication for symptom relief. Denies tingling and numbness. Denies other associated symptoms, chest pain, chest pain radiation, shortness of breath , headache and dizziness. Allergies: Coded Allergies: ERYTHROMYCIN BASE (Verified Allergy, Severe, Itching, 12/28/12) feels sick PENICILLINS (Verified Allergy, Severe, Itching, 12/28/12) Patient History Past Medical History: see triage record Past Surgical History: unable to obtain Pertinent Family History: none Immunizations: UTD Reviewed Nursing Documentation: PMH: Agreed; PSxH: Agreed Nursing Documentation-PMH Past Medical History: No Stated History Hx Cardiac Problems: No Hx Hypertension: No Hx Pacemaker: No Hx Asthma: No Hx COPD: No Hx Diabetes: No Hx Cancer: No Hx Gastrointestinal Problems: No Hx Dialysis: No Hx Neurological Problems: No Hx Cerebrovascular Accident: No Hx Seizures: No Review of Systems All Other Systems: negative except mentioned in HPI Physical Exam Vital Signs Date Time Temp Pulse Resp B/P (MAP) Pulse Ox O2 Delivery O2 Flow Rate FiO2 04/26/19 18:18 97.9 108 16 128/83 (98) 95 Room Air Sp02 EP Interpretation: reviewed, normal General Appearance: no apparent distress, alert, GCS 15, non-toxic Head: normocephalic, atraumatic Eyes: bilateral eye normal inspection, bilateral eye PERRL ENT: hearing grossly normal, normal pharynx, no angioedema, normal voice Neck: full range of motion, supple, no meningismus, supple/symm/no masses Respiratory: chest non-tender, lungs clear, normal breath sounds, no rhonchi, no retraction, speaking full sentences Cardiovascular #1: regular rate, rhythm, no edema, no murmur, normal capillary refill Cardiovascular #2: 2+ radial (R), 2+ radial (L) Gastrointestinal: normal bowel sounds, non tender, soft, non-distended, no guarding, no rebound Rectal: deferred Genitourinary: no CVA tenderness Musculoskeletal: back normal, digits/nails normal, non-tender Neurologic: alert, motor strength/tone normal, oriented x3, sensory intact, responsive, speech normal Psychiatric: judgement/insight normal, memory normal, mood/affect normal, no suicidal/homicidal ideation Skin: no rash Lymphatic: no adenopathy Procedures Splinting Splinting : Consent: Verbal Location: Right elbow Pre-Made Type: WILL wrap Pre-Proc Neuro Vasc Exam: normal Post-Proc Neuro Vasc Exam: normal Patient Tolerated: Well Complications: None Medical Decision Making PA Attestation All my diagnosis and treatment plans were reviewed ad discussed with my supervising physician Dr. Tejeda Diagnostic Impression: Primary Impression: Tennis elbow Additional Impression: Arthritis of elbow, right ER Course 53-year-old male with no significant past medical history here complaining of 2 weeks of right elbow pain. Patient denies any fall or injury. Reports that he is right-handed and often lifts heavy objects with right-sided arm. No bony tenderness noted. Denies any pain radiation rating it 5 out of 10 today. Has not taken medication for symptom relief. Denies tingling and numbness. Denies other associated symptoms, chest pain, chest pain radiation, shortness of breath , headache and dizziness. Ddx considered but are not limited to : Tennis elbow, arthritis of elbow, elbow strain versus sprain versus fracture Vital signs: are WNL, pt. is afebrile H&PE are most consistent with: Right tennis elbow, arthritis of elbow ORDERS: Right elbow x-ray, Motrin, Voltaren gel ED INTERVENTIONS: Will wrap DISCHARGE: At this time pt. is stable for d/c to home. Will provide printed patient care instructions, and any necessary prescriptions. Care plan and follow up instructions have been discussed with the patient prior to discharge. Patient to avoid doing strenuous physical activity with affected side, follow with primary care doctor also I recommended physical therapy. If worsening symptoms return to the emergency room Other X-Ray Diagnostic Results Other X-Ray Diagnostic Results : X-Ray ordered: Right elbow # of Views/Limited Vs Complete: 3 View Indication: Pain EP Interpretation: Yes PA Xray: Interpretation reviewed, by supervising MD, and agrees with findings. Interpretation: no dislocation, no soft tissue swelling, no fractures Impression: No acute disease Electronically Signed by: Ayah Nolasco PA-C Last Vital Signs Date Time Temp Pulse Resp B/P (MAP) Pulse Ox O2 Delivery O2 Flow Rate FiO2 04/26/19 18:18 97.9 108 16 128/83 (98) 95 Room Air Disposition: HOME, SELF-CARE Condition: Stable Scripts Diclofenac Sodium (VOLTAREN) 100 Gm Gel..gram. 2 GM TP TID, #100 GM Prov: Ayah Hopper 04/26/19 Ibuprofen* (MOTRIN*) 600 Mg Tablet 600 MG ORAL Q8H PRN for For Pain, #30 TAB 0 Refills Prov: Ayah Hopper 04/26/19 Patient Instructions: Arthritis, [id number]-[id number], Tennis Elbow, Hnud-ih-[id number] Additional Instructions: Take medication as directed, follow-up with your primary care provider, avoid strenuous physical activity, needs to be sent to physical therapy to be requested by your primary care physician. If worsening symptoms return to the emergency room Ayah Hopper Apr 26, 2019 18:58
[2019-04-26] MEDS ORDERED: IBUPROFEN600 MG ORAL (19:00)
[2019-04-26] MEDS ORDERED: VOLTAREN100 G1 TP (19:00)
[2019-04-26 19:07] VITALS: BP 128/83
--- NOTE | 2019-04-26 19:07 | NUR ---
ER DISCHARGE NOTE: Patient is cleared to be discharged per ERPA, pt is aox4, on room air, with stable vital signs. pt was given dc and prescription instructions, pt was able to verbalize understanding, pt id band removed. pt is able to ambulate with steady gait. pt took all belongings.
--- NOTE | 2019-04-27 13:54 | Diagnostic Imaging Report ---
Indication: Right elbow pain Findings: 3 views of the right elbow were obtained. No acute fractures, malalignment, erosions or periostitis are identified. Mild periarticular osteophytes demonstrated consistent with osteoarthritis. Soft tissues are unremarkable. Impression: Negative for acute injury
== END 2019-04-26 19:07 | disposition home or self-care (01) ==
LOC: EMR 19:06
DX: M77.11 Lateral epicondylitis, right elbow (principal); M13.821 Other specified arthritis, right elbow; Z88.0 Allergy status to penicillin; Z88.1 Allergy status to other antibiotic agents
CPT/HCPCS: 73080; Z7502; 99283